=== PATIENT | male | born 1960 | race Caucasian/White ===

== ENCOUNTER 2017-11-02 06:47 | Day surgery (SDC) | payer OTHER ==
--- NOTE | 2017-10-19 10:05 | HP ---
CC: Dr. Iglesia Crews * HISTORY AND PHYSICAL: DATE OF PLANNED ADMISSION AND SURGERY: 11/02/17 HISTORY OF PRESENT ILLNESS: Mr. Vazquez is a 56-year-old white male who is admitted with a symptomatic left spermatocele for surgical excision. I have been following Mr. Vazquez for the last 3 years because of left scrotal swelling and discomfort. At that time, he was worked up and was noted to have a multiloculated left spermatocele measuring about 6 cm in size. There was also an associated left varicocele. The patient was observed and managed conservatively. More recently, he noted enlargement of the left scrotum, which became more symptomatic, interfering with his physical activities. Upon reevaluation, the spermatocele has increased to about 10 cm in size and felt multiloculated. Again was noted a left varicocele. There was no inguinal hernia and the right testicle felt normal. Because of the increasing symptoms interfering with the patient's activities, surgical excision was advised and accepted. PAST MEDICAL HISTORY AND SYSTEM REVIEW: He is in excellent health. MEDICATIONS: He is on no chronic medications. ALLERGIES: He denies any allergies to medications. 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 PHYSICAL EXAMINATION GENERAL: Pleasant, healthy, and fit-looking white male. VITAL SIGNS: Blood pressure 100/70, pulse of 55. LUNGS: Clear. HEART: Regular and rhythmic. No murmurs. ABDOMEN: Soft. No masses, no tenderness, and no CVA tenderness. GENITOURINARY: External genitalia: he is circumcised. No penile lesions. The right testis and scrotal contents feel normal. There is a transilluminating cystic enlargement located above the left testis measuring about 10 cm in diameter and consistent with a left spermatocele. The left testis feels normal. He has no inguinal hernias. RECTAL: Exam on an earlier visit had shown a non-enlarged and non-suspicious prostate. IMPRESSION: Symptomatic multiloculated left spermatocele. PLAN: For left spermatocelectomy. I discussed the operation in detail with the patient. Some of the potential complications including infection and hematoma were discussed. The patient understands that he will have post-op scrotal swelling for several weeks after the procedure due to postoperative edema. All his questions were answered. [id number]/[facility] #: [id number] [facility]
[~2017-11-02 06:47] MED LIST: Buffered Lidocaine 0.9% SYRIN* 5 ML/SYR SYRINGE INTRADERM ONE; Sodium Citrate/Citric Acid* 15 ML UDC PO ONE
[2017-11-02] MEDS ORDERED: Buffered Lidocaine 0.9% SYRIN* 5 ML/SYR SYRINGE ONE (06:55)
[2017-11-02] MEDS ORDERED: Sodium Citrate/Citric Acid* 15 ML UDC ONE (06:55)
[2017-11-02] MEDS ORDERED: ceFAZolin 2 GM PREMIX (*) 2 GM/50 ML BAG IVPB ONE (06:56)
[2017-11-02] MEDS ORDERED: Bupivacaine 0.5% SDV PF* 30 ML VIAL ONE (07:13)
[2017-11-02] MEDS ORDERED: Midazolam* 1 MG/ML 2 ML VIAL (2 MG) ONE ×2 (08:30→08:41)
[2017-11-02] MEDS ORDERED: fentaNYL* 50 MCG/ML 2 ML VIAL (100 MCG VIAL) ONE (08:42)
[2017-11-02] MEDS ORDERED: Chloroprocaine 2%* 20 ML VIAL ONE (09:08)
--- NOTE | 2017-11-02 11:11 | OP ---
CC: Iglesia Crews MD * DATE OF OPERATION: 11/02/17 - [facility] DATE OF : 58 SURGEON: Nigel Pringle MD. ANESTHESIOLOGIST: John Merino DO ANESTHESIA: Spinal. PRE-OP DIAGNOSIS: Multiloculated left spermatoceles. POST-OP DIAGNOSIS: Multiloculated left spermatoceles. OPERATIVE PROCEDURE: 1. Left scrotal exploration. 2. Excision of multiloculated spermatoceles. INDICATIONS: Mr. Vazquez is a 56-year-old white male who had progressive left scrotal swelling and discomfort over the last three years. More recently, the scrotal swelling has gotten larger and became uncomfortable interfering with his physical activities. Examination confirmed the presence of large multiloculated spermatoceles. Because of the above history and findings, surgical excision was advised and accepted. FINDINGS: Upon left scrotal exploration, there was no hydrocele noted. No inguinal hernia and no significant varicocele noted. There were two dominant multiloculated spermatoceles, the largest measuring about 8 cm and the smaller about 5 cm. The testes felt normal. No other abnormalities were noted. DESCRIPTION OF PROCEDURE: After successful spinal anesthesia with the patient in the supine position, the patient was prepped and draped for scrotal exploration. A transverse incision was carried over the mid to upper left hemiscrotum. The incision was deepened through the dartos muscle. The testis was delivered within the tunica vaginalis through the incision. The tunica vaginalis was then opened. The testis, the spermatic cord and the spermatoceles were identified. The spermatic cord was then isolated, dissected, retracted and preserved. The plane between the adventitia and each spermatocele were then dissected and the spermatoceles were freed all the way to their origin from the epididymis. At that level, the spermatoceles were tied and excised and delivered intact without rupturing them. The epididymis was not enlarged and did not seem to be much involved with the pathology. The bleeders were electrocoagulated and controlled. At the end of the procedure , there was no spermatoceles left. The spermatic cord was intact. The testis had good vascularity. The tunica vaginalis was then everted and approximated to itself around the spermatic cord using running sutures of 4-0 Vicryl. The testis was then replaced inside the scrotal cavity making sure there was no twisting of the cord. A Danny drain was then placed in the scrotal cavity and brought out through the lower aspect of the scrotum and transfixed to the skin with a Prolene suture. There was very good hemostasis. The scrotal incision was then closed using running 4-0 Vicryl for the dartos muscle and the skin was closed using interrupted everting sutures of 4-0 chromic. A total of 8 cc of 0.5% Marcaine without epinephrine were injected in the incision for postoperative analgesia. The patient tolerated the procedure well and left the operating room in good condition. The blood loss was negligible. The specimens were two spermatoceles. All the counts were correct. [id number]/[facility] #: [id number] [facility]
[2017-11-02 11:41] VITALS: BP 139/80
== END 2017-11-02 11:41 | disposition home or self-care (01) ==
LOC: OR 06:47
PROVIDERS: ATTEND Urology
DX: N43.42 Spermatocele of epididymis, multiple (principal); M54.9 Dorsalgia, unspecified
CPT/HCPCS: 62323; 88304; A9270-GY; J0690; J2250; J2400; J3010